=== PATIENT | male | born 1945 | race Caucasian/White ===

== ENCOUNTER 2021-11-07 12:30 | Day surgery (SDC) | payer MEDICARE, OTHER ==
[2021-11-07] MEDS ORDERED: Decadron 4 MG INJ IV ONE (12:31)
[2021-11-07] MEDS ORDERED: Sodium Chloride 0.9(Preservative Free) 10 ML IJ ONE (12:31)
[2021-11-07] MEDS ORDERED: Xylocaine 1% Vial 30 ML PF IJ ONE (12:31)
[2021-11-07] MEDS ORDERED: Lactated Ringers 1,000 ML IV ONE (15:01)
--- NOTE | 2021-11-07 16:56 | XRAY ---
Indication: Cervical JEMAL. Intraoperative fluoroscopy provided for 35 seconds. Single digital spot image submitted for interpretation demonstrates midline posterior needle tip projecting posterior to cervical thoracic junction. Small amount of contrast injected for needle tip placement. Correlate with intraoperative findings/report.
--- NOTE | 2021-11-07 17:10 | XRAY ---
35 seconds fluoroscopy time in surgery for cervical JEMAL.
== END 2021-11-07 15:18 | disposition home or self-care (01) ==
LOC: SDC-PAIN 12:30
PROVIDERS: ATTEND Psychiatry & Neurology Pain Medicine
DX: M54.16 Radiculopathy, lumbar region (principal); E11.9 Type 2 diabetes mellitus without complications; I10 Essential (primary) hypertension; Z79.899 Other long term (current) drug therapy
CPT/HCPCS: 62321; 72040; 77003; 82947; J1100; J2001; Q9966

== ENCOUNTER 2022-02-06 08:43 | Day surgery (SDC) | payer MEDICARE, OTHER ==
[2022-02-06] MEDS ORDERED: Decadron 4 MG INJ IV ONE (08:44)
[2022-02-06] MEDS ORDERED: LIDOCAINE HCL 2% 100 MG/5 ML IJ ONE ×2 (08:44)
[2022-02-06] MEDS ORDERED: Lactated Ringers 1,000 ML IV ONE (10:08)
--- NOTE | 2022-02-06 12:24 | XRAY ---
Indication: Left C2-C5 MBB. Intraoperative fluoroscopy provided for 35 seconds. 2 digital spot image submitted for interpretation demonstrates posterior needle tips projecting over the expected left C2-C5 nerve roots. Correlate with intraoperative findings/report.
--- NOTE | 2022-02-06 16:46 | XRAY ---
35 seconds of fluoroscopy was used in surgery for a left C2-C5 MBB.
== END 2022-02-06 10:00 | disposition home or self-care (01) ==
LOC: SDC-PAIN 08:43
PROVIDERS: ATTEND Psychiatry & Neurology Pain Medicine
DX: M47.812 Spondylosis without myelopathy or radiculopathy, cervical region (principal); E11.9 Type 2 diabetes mellitus without complications; Z79.899 Other long term (current) drug therapy
CPT/HCPCS: 64490; 64491; 64492; 72040; 77002; 82947; J1100

== ENCOUNTER 2022-03-06 08:17 | Day surgery (SDC) | payer MEDICARE, OTHER ==
[2022-03-06] MEDS ORDERED: Marcaine Mpf 0.5% Vial 30 Ml IJ ONE (08:18)
[2022-03-06] MEDS ORDERED: DIPRIVAN 200 MG/20 ML IV ONE (10:06)
[2022-03-06] MEDS ORDERED: Lactated Ringers 1,000 ML IV ONE (10:22)
--- NOTE | 2022-03-06 10:54 | XRAY ---
Indication: Left C2-C5 MBB. Intraoperative fluoroscopy provided for 33 seconds. 3 digital spot images submitted for interpretation demonstrates posterior needle tips projecting over the expected left C2-C5 nerve roots. Correlate with intraoperative findings/report.
--- NOTE | 2022-03-06 11:04 | XRAY ---
33 seconds of fluoroscopy was used in surgery for a left C2-C5 MBB.
== END 2022-03-06 10:30 | disposition home or self-care (01) ==
LOC: SDC-PAIN 08:17
PROVIDERS: ATTEND Psychiatry & Neurology Pain Medicine
DX: M47.812 Spondylosis without myelopathy or radiculopathy, cervical region (principal); E11.9 Type 2 diabetes mellitus without complications; Z79.899 Other long term (current) drug therapy
CPT/HCPCS: 64490; 64491; 64492; 72040; 77002; 82947; J2704

== ENCOUNTER 2022-04-10 09:51 | Day surgery (SDC) | payer MEDICARE, OTHER ==
[2022-04-10] MEDS ORDERED: XYLOCAINE-MPF 1% 5ML SDV IJ ONE (09:52)
[2022-04-10] MEDS ORDERED: Lactated Ringers 1,000 ML IV ONE (11:17)
[2022-04-10] MEDS ORDERED: DIPRIVAN 200 MG/20 ML IV ONE (11:21)
--- NOTE | 2022-04-10 13:58 | XRAY ---
Indication: Left C2-C5 RFA. Intraoperative fluoroscopy provided for 52 seconds. 3 digital spot image submitted for interpretation demonstrates posterior needle tips projecting over the expected left C2-C5 nerve roots. Correlate with intraoperative findings/report.
--- NOTE | 2022-04-10 16:47 | XRAY ---
52 seconds fluoroscopy time in surgery for left C2-C5 RFA.
== END 2022-04-10 12:00 | disposition home or self-care (01) ==
LOC: SDC-PAIN 09:51
PROVIDERS: ATTEND Psychiatry & Neurology Pain Medicine
DX: M47.812 Spondylosis without myelopathy or radiculopathy, cervical region (principal); E11.9 Type 2 diabetes mellitus without complications; Z79.899 Other long term (current) drug therapy
CPT/HCPCS: 01939; 64633; 64634; 72040; 77002; 82947; 93005; 99100; J2704

== ENCOUNTER 2023-05-07 09:38 | Day surgery (SDC) | payer MEDICARE, OTHER ==
[2023-05-07] MEDS ORDERED: DIPRIVAN 200 MG/20 ML IV ONE (11:47)
[2023-05-07] MEDS ORDERED: Lactated Ringers 1,000 ML IV ONE (12:55)
--- NOTE | 2023-05-07 13:44 | XRAY ---
Indication: Bilateral L4-S1 MBB. Intraoperative fluoroscopy provided for 17 seconds. Single digital spot image submitted for interpretation demonstrates posterior needle tips projecting over the expected left and right L4-S1 nerve roots. Correlate with intraoperative findings/report. Incidental bilateral iliac stents.
--- NOTE | 2023-05-07 13:58 | XRAY ---
17 seconds of fluoroscopy was used in surgery for a bilateral L4-S1 MBB.
== END 2023-05-07 12:15 | disposition home or self-care (01) ==
LOC: SDC-PAIN 09:38
PROVIDERS: ATTEND Psychiatry & Neurology Pain Medicine
DX: M47.816 Spondylosis without myelopathy or radiculopathy, lumbar region (principal); E11.9 Type 2 diabetes mellitus without complications; Z79.899 Other long term (current) drug therapy
CPT/HCPCS: 64493; 64494; 72020; 77002; 82947; J2704

== ENCOUNTER 2023-06-04 07:50 | Day surgery (SDC) | payer MEDICARE, OTHER ==
[2023-06-04] MEDS ORDERED: BUPIVACAINE 0.5% VIAL IJ ONE (07:51)
[2023-06-04] MEDS ORDERED: Depo-Medrol 40 MG/ML IM ONE (07:51)
[2023-06-04] MEDS ORDERED: DIPRIVAN 200 MG/20 ML IV ONE (09:08)
--- NOTE | 2023-06-04 11:35 | XRAY ---
Indication: Bilateral L4-S1 MBB. Intraoperative fluoroscopy provided for 17 seconds. Single digital spot image submitted for interpretation demonstrates posterior needle tips projecting over the expected left and right L4-S1 nerve roots. Correlate with intraoperative findings/report.
--- NOTE | 2023-06-04 11:37 | XRAY ---
17 seconds of fluoroscopy was used in surgery for a bilateral L4-S1 MBB.
[2023-06-04] MEDS ORDERED: Lactated Ringers 1,000 ML IV ONE (11:43)
== END 2023-06-04 09:42 | disposition home or self-care (01) ==
LOC: SDC-PAIN 07:50
PROVIDERS: ATTEND Psychiatry & Neurology Pain Medicine
DX: M47.816 Spondylosis without myelopathy or radiculopathy, lumbar region (principal); E11.9 Type 2 diabetes mellitus without complications; Z79.899 Other long term (current) drug therapy
CPT/HCPCS: 64493; 64494; 72020; 77002; 82947; J1030; J2704

== ENCOUNTER 2023-07-09 09:12 | Day surgery (SDC) | payer MEDICARE, OTHER ==
[2023-07-09] MEDS ORDERED: XYLOCAINE-MPF 1% 5ML SDV IJ ONE (09:13)
[2023-07-09] MEDS ORDERED: BUPIVACAINE 0.5% VIAL IJ ONE (09:13)
[2023-07-09] MEDS ORDERED: Depo-Medrol 40 MG/ML IM ONE (09:13)
[2023-07-09] MEDS ORDERED: DIPRIVAN 200 MG/20 ML IV ONE (11:08)
[2023-07-09] MEDS ORDERED: Xylocaine-Mpf 2% 5 Ml Vial ONE (11:13)
--- NOTE | 2023-07-09 13:02 | XRAY ---
Indication: Right L4-S1 RFA. Intraoperative fluoroscopy provided for 20 seconds. 5 digital spot image submitted for interpretation demonstrates posterior needle tips projecting over the expected right L4-S1 nerve roots. Correlate with intraoperative findings/report. Incidental biiliac stents.
--- NOTE | 2023-07-09 13:04 | XRAY ---
20 seconds of fluoroscopy was used in surgery for a right L4-S1 RFA.
[2023-07-09] MEDS ORDERED: Lactated Ringers 1,000 ML IV ONE (14:33)
== END 2023-07-09 11:45 | disposition home or self-care (01) ==
LOC: SDC-PAIN 09:12
PROVIDERS: ATTEND Psychiatry & Neurology Pain Medicine
DX: M47.816 Spondylosis without myelopathy or radiculopathy, lumbar region (principal); E11.9 Type 2 diabetes mellitus without complications; Z79.899 Other long term (current) drug therapy
CPT/HCPCS: 64635; 64636; 72100; 77002; 82947; J1030; J2704

== ENCOUNTER 2023-07-23 09:37 | Day surgery (SDC) | payer MEDICARE, OTHER ==
[2023-07-23] MEDS ORDERED: Depo-Medrol 40 MG/ML IM ONE (09:38)
[2023-07-23] MEDS ORDERED: BUPIVACAINE 0.5% VIAL IJ ONE (09:38)
[2023-07-23] MEDS ORDERED: XYLOCAINE-MPF 1% 5ML SDV IJ ONE (09:38)
[2023-07-23] MEDS ORDERED: D50W 50 ml Abboject IV ONE ×2 (11:00)
[2023-07-23] MEDS ORDERED: DIPRIVAN 200 MG/20 ML IV ONE (12:17)
[2023-07-23] MEDS ORDERED: Lactated Ringers 1,000 ML IV ONE (15:01)
--- NOTE | 2023-07-23 20:54 | XRAY ---
Indication: Left L4-S1 RFA. Intraoperative fluoroscopy provided for 21 seconds. 5 digital spot image submitted for interpretation demonstrates posterior needle tip projecting over the expected left L4-S1 nerve roots. Correlate with intraoperative findings/report. Incidental biiliac stents.
--- NOTE | 2023-07-23 21:43 | XRAY ---
21 seconds of fluoroscopy was used in surgery for a left L4-S1 RFA.
== END 2023-07-23 12:30 | disposition home or self-care (01) ==
LOC: SDC-PAIN 09:37
PROVIDERS: ATTEND Psychiatry & Neurology Pain Medicine
DX: M47.817 Spondylosis without myelopathy or radiculopathy, lumbosacral region (principal); E11.9 Type 2 diabetes mellitus without complications; Z79.899 Other long term (current) drug therapy
CPT/HCPCS: 64635; 64636; 72100; 77002; 82947; 99100; J1030; J2704

== ENCOUNTER 2023-08-27 08:47 | Day surgery (SDC) | payer MEDICARE, OTHER ==
[2023-08-27] MEDS ORDERED: Depo-Medrol 40 MG/ML IM ONE (08:48)
[2023-08-27] MEDS ORDERED: BUPIVACAINE 0.5% VIAL IJ ONE (08:48)
[2023-08-27] MEDS ORDERED: DIPRIVAN 200 MG/20 ML IV ONE (12:10)
[2023-08-27] MEDS ORDERED: Xylocaine-Mpf 2% 5 Ml Vial ONE (12:11)
--- NOTE | 2023-08-27 13:08 | XRAY ---
Indication: Left SI joint and left hip injection. Intraoperative fluoroscopy provided for 18 seconds. 4 digital spot images obtained prone submitted for interpretation demonstrates posterior needle tip projecting over left SI joint. Second needle tip lateral to left femur neck with small amount of contrast injected for needle tip placement. Correlate with intraoperative findings/report.
--- NOTE | 2023-08-27 13:26 | XRAY ---
18 seconds of fluoroscopy was used in surgery for a left sacroiliac joint and left intra-articular hip injection.
[2023-08-27] MEDS ORDERED: Lactated Ringers 1,000 ML IV ONE (13:44)
== END 2023-08-27 12:00 | disposition home or self-care (01) ==
LOC: SDC-PAIN 08:47
PROVIDERS: ATTEND Psychiatry & Neurology Pain Medicine
DX: M16.12 Unilateral primary osteoarthritis, left hip (principal); M46.1 Sacroiliitis, not elsewhere classified; E11.9 Type 2 diabetes mellitus without complications
CPT/HCPCS: 20610; 64625; 73502; 77002; 82947; 99100; J1030; J2704; Q9966

== ENCOUNTER 2023-09-24 08:00 | Day surgery (SDC) | payer MEDICARE, OTHER ==
[2023-09-24] MEDS ORDERED: BUPIVACAINE 0.5% VIAL IJ ONE (08:01)
[2023-09-24] MEDS ORDERED: XYLOCAINE-MPF 1% 5ML SDV IJ ONE (08:01)
[2023-09-24] MEDS ORDERED: Decadron 4 MG INJ IV ONE (08:01)
[2023-09-24] MEDS ORDERED: DIPRIVAN 200 MG/20 ML IV ONE ×2 (09:38→09:54)
--- NOTE | 2023-09-24 11:26 | XRAY ---
Indication: Left C2-C5 RFA. Intraoperative fluoroscopy provided for 45 seconds. 2 digital spot images submitted for interpretation demonstrates posterior needle tips projecting over the expected left C2-C5 nerve roots. Correlate with intraoperative findings/report.
--- NOTE | 2023-09-24 11:47 | XRAY ---
45 seconds of fluoroscopy was used in surgery for a left C2-C5 RFA.
[2023-09-24] MEDS ORDERED: Lactated Ringers 1,000 ML IV ONE (12:25)
== END 2023-09-24 10:24 | disposition home or self-care (01) ==
LOC: SDC-PAIN 08:00
PROVIDERS: ATTEND Psychiatry & Neurology Pain Medicine
DX: M47.812 Spondylosis without myelopathy or radiculopathy, cervical region (principal); E11.9 Type 2 diabetes mellitus without complications
CPT/HCPCS: 64633; 64634; 72040; 77002; 82947; 99100; J1100; J2704